=== PATIENT | female | born 1995 | race Caucasian/White ===

== ENCOUNTER 2018-06-30 13:25 | Emergency (ER) | payer OTHER ==
[2018-06-30 13:38] VITALS: BP 100/60
--- NOTE | 2018-06-30 13:55 | UC ---
Complaint Female HPI - HPI Summary HPI Summary: 22 -year-old female who had an IUD inserted in October. She states she had sexual intercourse last evening and felt like it got "bumped". Worried it may have become dislodged. She routinely checks for the string although did not check for today. Since October it has been in place. Is sexually active with one partner who is also monogamous. She denies any fever or chills. No abnormal vaginal discharge, bleeding or spotting. - History Of Current Complaint Chief Complaint: UCGU Stated Complaint: PERSONAL Time Seen by Provider: 06/30/18 13:46 Hx Obtained From: Patient Hx Last Menstrual Period: 06/07/18 ?: No Onset/Duration: Gradual Onset Timing: Intermittent - States she felt like the IUD may have become dislodged. Severity Initially: Mild Severity Currently: Mild Pain Intensity: 2 Aggravating Factor(s): [place] Alleviating Factor(s): Nothing Associated Signs And Symptoms: Positive: Negative - Risk Factors Ectopic Risk Factor: IUD Use - Allergies/Home Medications Allergies/Adverse Reactions: Allergies Allergy/AdvReac Type Severity Reaction Status Date / Time amoxicillin Allergy Rash Verified 06/30/18 13:38 Home Medications: Home Medications NK [No Home Medications Reported] 06/30/18 [History Confirmed 06/30/18] PMH/Surg Hx/FS Hx/Imm Hx Previously Healthy: Yes - Surgical History Surgical History: Yes Surgery Procedure, Year, and Place: wisdom teeth - Family History Known Family History: Positive: None - Social History Alcohol Use: Weekly Substance Use Type: Marijuana Smoking Status (MU): Never Smoked Tobacco Review of Systems All Other Systems Reviewed And Are Negative: Yes Constitutional: Positive: Negative Genitourinary: Positive: Other. Negative: Dysuria, Hematuria, Frequency, Urgency, Vaginal/Penile Burning, Vaginal/Penile Itching, Vaginal/Penile Discharge, Vaginal/Penile Pain, Vaginal/Penile Tenderness Is Patient Immunocompromised?: No Physical Exam Appearance: Well-Appearing, No Pain Distress, Well-Nourished Vital Signs: Initial Vital Signs Temp 98 F 06/30/18 13:32 Pulse 110 06/30/18 13:32 Resp 20 06/30/18 13:32 BP 100/60 06/30/18 13:32 Pulse Ox 100 06/30/18 13:32 Vital Signs Reviewed: Yes Respiratory Exam: Normal Cardiovascular Exam: Normal Abdomen Description: Positive: No Organomegaly, Soft. Negative: CVA Tenderness (R), CVA Tenderness (L), Distended, Guarding, Hepatomegaly, Splenomegaly Bowel Sounds: Positive: Present Pelvic Exam: Positive: External Exam Normal, Discharge - Small amount of white discharge in the vaginal canal., Tender w/ Cervical Motion - Mild cervical motion tenderness. Negative: Tender Adnexa, Tender Uterus - The string from the IUD is visible from the cervix. Musculoskeletal Exam: Normal Neurological Exam: Normal Psychological Exam: Normal Skin Exam: Normal Complaint Female Dx - Course Course Of Treatment: She has been comfortable here. Urine test was negative. Her IUD appears to be in place with the string visible coming out of the cervix. There is no purulent discharge from the cervix. The tenderness she is feeling is from having sexual intercourse last evening which was uncomfortable afterwards. She is agreeable that she prefers to wait for the culture results as opposed to being treated for sexually transmitted disease now because she is in a monogamous relationship. I urged that she follow-up with her MOLECULAR BIOLOGIST physician if any worsening symptoms or go to the emergency room for any fever, chills, worsening abdominal pain. - Differential Dx/Diagnosis Provider Diagnosis: Pelvic pain Discharge - Sign-Out/Discharge Documenting (check all that apply): Patient Departure All imaging exams completed and their final reports reviewed: No Studies - Discharge Plan Condition: Good Disposition: HOME Patient Education Materials: Sexually Transmitted Diseases (ED) Referrals: No Primary Care Phys,NOPCP [Primary Care Provider] - [facility] [Outside] Additional Instructions: Definite follow-up with your primary care provider or your MOLECULAR BIOLOGIST physician if no improvement in 2 or 3 days. We will call you if the culture reports come back positive. Go to the emergency room if you have worsening symptoms, fever, chills. - Billing Disposition and Condition Condition: GOOD Disposition: Home - Attestation Statements Provider Attestation: I was available for consult. This patient was seen by the [facility]. The patient was not presented to , seen by or examined by ca -Alayna Barron MD
[2018-07-01 15:00] LABS: Neisseria gonorrhoeae (GC) RNA Negative (Negative)
[2018-07-01 15:10] LABS: Trichomonas vaginalis Result Negative (Negative)
--- NOTE | 2018-07-01 15:39 | UC ---
- Progress Note Progress Note: 07/01/2018 Pelvic samples: negative Felisha and [place] No change Alva Amezcua PA-C Course/Dx - Diagnoses Provider Diagnoses: Pelvic pain Discharge - Sign-Out/Discharge Documenting (check all that apply): Post-Discharge Follow Up All imaging exams completed and their final reports reviewed: No Studies - Discharge Plan Condition: Good Disposition: HOME Patient Education Materials: Sexually Transmitted Diseases (ED) Referrals: [facility] [Outside] No Primary Care Phys,NOPCP [Primary Care Provider] - Additional Instructions: Definite follow-up with your primary care provider or your [facility]LE APPLICATION CONSULTANT physician if no improvement in 2 or 3 days. We will call you if the culture reports come back positive. Go to the emergency room if you have worsening symptoms, fever, chills. - Billing Disposition and Condition Condition: GOOD Disposition: Home
== END 2018-06-30 14:41 | disposition home or self-care (01) ==
LOC: UCEAST 13:25
DX: R10.2 Pelvic and perineal pain (principal); Z88.1 Allergy status to other antibiotic agents
CPT/HCPCS: 84702; 87480; 87491; 87510; 87591; 87661; 99202; G0463